=== PATIENT | female | born 1960 | race Caucasian/White ===

== ENCOUNTER → 2021-02-24 11:09 | Outpatient (CLI) | payer OTHER, SELFPAY ==
--- NOTE | 2021-02-24 | DI.MRI.S_ITS ---
PROCEDURE: MR SHOULDER RT WO CON INDICATIONS: Pain in right shoulder TECHNIQUE: Noncontrast oblique coronal T2 fast spin echo with fat saturation, oblique sagittal T1 spin echo and T2 fast spin echo with fat saturation, axial T1 spin echo and T2 fast spin echo with fat saturation through the shoulder. COMPARISON: None. FINDINGS: Image quality: A dedicated shoulder coil could not be used due to patient body habitus. Images are degraded by poor signal to noise ratio. Some diagnostic information is obtained. Rotator cuff: There is supraspinatus tendinosis and a tiny focus of low-grade intrasubstance tearing at the distal insertion. There is moderate infraspinatus tendinosis. The teres minor tendon is intact. There is mild subscapularis tendinosis. The rotator cuff musculature is normal in bulk. Bones and bursae: No acute trabecular bone injury. Chronic traction cystic changes are seen at the posterosuperior humeral head. There is no narrowing of the supraspinatus outlet. No high-grade acromioclavicular osteoarthrosis is seen. A trace amount of subacromial/subdeltoid bursal fluid is present. There is a small amount of glenohumeral fluid. Capsule and soft tissues: The labrum is not well evaluated due to image degradation as described above. However, focal hyperintense signal is seen at the posterosuperior labrum that could represent a subtle nondisplaced tear. No paralabral cyst is seen. No biceps long head tendon tear seen. IMPRESSION: 1. Suspected nondisplaced tear of the posterosuperior labrum. However, image quality is suboptimal secondary to an inability to use a dedicated shoulder coil due to patient's body habitus. Recommend correlation with clinical signs and symptoms. 2. Focal low-grade intrasubstance tearing of the supraspinatus tendon at the distal insertion superimposed on moderate supraspinatus and infraspinatus tendinosis. 3. Mild subscapularis tendinosis. Dictated by: Jhonatan Carrion M.D. on 02/24/2021 at 12:21 Approved by: Jhonatan Carrion M.D. on 02/24/2021 at 12:34
== END ==
PROVIDERS: PCP Internal Medicine; Referring Provider Family Medicine; Visit Provider Family Medicine
DX: M75.111 Incomplete rotator cuff tear or rupture of right shoulder, not specified as traumatic (principal); M25.511 Pain in right shoulder
CPT/HCPCS: 73221

== ENCOUNTER → 2021-07-12 09:45 | Outpatient (CLI) | payer OTHER, SELFPAY ==
[2021-07-12 13:20] LABS: COVID19 -Nasal RAPID Negative (Negative)
== END ==
PROVIDERS: PCP Internal Medicine; Visit Provider Family Medicine Sleep Medicine
DX: Z20.822 Contact with and (suspected) exposure to COVID-19 (principal)
CPT/HCPCS: 87635; C9803

== ENCOUNTER 2021-07-13 10:21 | Day surgery (SDC) | payer OTHER, SELFPAY ==
[2021-07-11 15:00] VITALS: BMI 41.3
[2021-07-13] VITALS (7 sets, daily range): BP systolic 128–164; BP diastolic 79–93; PULSE 88–100; RESP 12–18; TEMP 36.1–36.4; O2SAT 96–99; BMI 41.3
[2021-07-13] MEDS: LACTATED RINGERS 1,000 ML 84 ML IV ×2 (10:30→14:04)
--- NOTE | 2021-07-13 12:56 | P.HP_ITS ---
History of Present Illness History of Present Illness Date Patient Seen: 07/13/21 Time Patient Seen: 12:15 Chief complaint: SDC Narrative: 61-year-old female with right shoulder pain this been unresponsive to conservative management. Patient History Medical History Anesthesia complication Asthma Difficult intravenous access Headache, migraine HTN (hypertension) Hypothyroidism Psoriasis Surgical History History of hysterectomy History of nasal surgery Hx of bilateral oophorectomy Hx of dilation and curettage Hx of shoulder surgery Family & Social History Social History: household members spouse Tobacco & Substance use: Smoking Status Never smoker alcohol intake current alcohol intake frequency holiday/special occasion Substance Use Type does not use Meds Home Medications and Allergies Home Medications Medication Instructions Recorded Confirmed Type amitriptyline 50 mg tablet 50 mg PO BEDTIME 07/11/21 07/13/21 History aspirin 81 mg tablet,delayed 81 mg PO DAILY 07/11/21 07/13/21 History release levothyroxine 88 mcg tablet 88 mcg PO DAILY 07/11/21 07/13/21 History (Synthroid) losartan 100 mg tablet 100 mg PO DAILY 07/11/21 07/11/21 History methocarbamol 500 mg tablet 500 mg PO TID 07/11/21 07/13/21 History trazodone 300 mg tablet 300 mg PO BEDTIME 07/11/21 07/13/21 History Allergies Allergy/AdvReac Type Severity Reaction Status Date / Time adhesive tape Allergy Severe Welts Verified 07/13/21 10:05 celecoxib Allergy Severe Rash, welts Verified 07/13/21 10:05 latex Allergy Severe Rash Verified 07/13/21 10:05 Sulfa (Sulfonamide Allergy Severe Welts Verified 07/13/21 10:05 Antibiotics) Iodine and Iodide Containing Allergy Verified 07/13/21 10:05 Produc shellfish derived Allergy Unknown, Verified 07/13/21 10:05 positive on allergy testing doxycycline AdvReac Severe Headache Verified 07/13/21 10:05 codeine AdvReac I passed Verified 07/13/21 10:05 out Exam Vital Signs (past 8 hours): - 07/13/21 10:59 Temperature 97.6 F Pulse Rate 100 H Respiratory Rate 15 Blood Pressure 148/88 H Pulse Oximetry 99 Oxygen Delivery Method Room Air Narrative Exam Narrative: Decreased active range of motion to the shoulder. Pain with range of motion. Forward flexion and abduction to 120?. External rotation 30? and internal rotation to the small of the back. No sign of any glenohumeral joint instability or crepitus with range of motion. Pain with impingement testing as well as rotator cuff strength testing. Assessment & Plan Assessment & Plan narrative: Patient with right shoulder pain in unresponsive to conservative treatment. Patient has physical exam findings as well as MRI findings of impingement as well as a partial rotator cuff tear as well as some degenerative changes to the labrum. Due to her symptoms, patient is interested in proceeding with surgical treatment. The risk, benefits, alternatives, possible complications, operative course, and postop outcomes were discussed. Complications including but not limiting to bleeding, infection, fracture, nerve injury, continued pain postoperatively or instability postoperatively were discussed in detail. Medical complications including but not limited to deep venous thrombosis event, anesthesia complic ations with excessive bleeding, vascular events or cardiac events and other possible complications were discussed in detail. Need for postoperative rehabilitation and anticipated hospital stay and clinical course were discussed in detail. Patient acknowledges understanding and elects to proceed with surgery. Time Spent With Patient Critical Care time: I spent a total of [] minutes of critical care time on this patient's care today; this time is exclusive of procedural time.
--- NOTE | 2021-07-13 12:58 | PM.PREOP ---
Pre-operative Note Interval Note History & Physical reviewed/Exam performed by Physician: Yes Changes to H&P: No
[2021-07-13] MEDS: CEFAZOLIN 2 GM/20 ML SYRINGE IV (13:16)
--- NOTE | 2021-07-13 13:28 | SUR.PREOP ---
Block start time [1255] . Monitoring initiated and maintained throughout procedure. Oxygen and medications given per anesthesiologist. Patient remained stable throughout procedure, no adverse reactions noted. Block end time [1306].
--- NOTE | 2021-07-13 13:54 | SUR.OPER ---
Beach chair on padded OR bed. Head on gel donut secured with tape over gauze. Non-operative arm secured <90 degrees abduction on padded arm board. Pillow under knees. Safety belt at thigh. Cloth tape over blanket over lower legs.
[2021-07-13] MEDS: BUPIVACAINE 0.5% (PF) 30 ML, EPINEPHrine 0.15 MG INJ (14:00)
--- NOTE | 2021-07-13 14:09 | P.PCN_ITS ---
Procedures Date/Time Date of procedure: 07/13/21 Time of procedure: 13:00 General Procedure description: Ultrasound guided interscalene brachial plexus nerve block for post op pain control after right shoulder arthroscopy by Dr. Denny. Risk and benefits of procedure discussed with patient. ASA monitoring applied to patient. O2 given via nasal cannula. 1 mg Versed and 50 mcg fentanyl given for procedural sedation. Skin site was prepped with chlorhexidine and allowed to fully dry. Sterile gloves, mask, hat and probe cover were used to maintain sterility. 2% lidocaine and 30ga needle was used to make a small skin wheal at needle inser tion site. Under ultrasound guidance, a 21ga 50mm [place] needle was directed into the interscalene groove (middle/anterior scalenes) near the brachial plexus. Patient reported no parasthesias. After negative aspiration, 20 mL 0.5% ropivicaine and 10mg dexamethasone were injected around brachial plexus. Patient tolerated procedure well.
--- NOTE | 2021-07-13 14:42 | P.OP_ITS ---
Operative Date/Time/Diagnoses Date of procedure: 07/13/21 Time of procedure: 13:30 Pre-op diagnosis: Right shoulder impingement with partial rotator cuff tear and degenerative labral tearing Post-op diagnosis: same Procedure & Clinicians Procedure: Right arthroscopic extensive debridement CPT 94680, distal clavicle excision CPT 25455, subacromial decompression 58163 Same procedure as scheduled: Yes Indications: Patient with right shoulder impingement, partial rotator cuff tear, AC joint arthritis that is been unresponsive to conservative treatment. Surgeon: Tc Denny Welding Instructor: Skyla Victor Anesthesia Type: General and Peripheral nerve block Operative Notes Findings: Partial tearing to both the articular and bursal aspects of the rotator cuff. No sign of any high-grade tear or full-thickness tears. Degenerative tearing throughout the labrum. No sign of any extension into the bicipital anchor. No sign of any biceps tendon subluxation or tearing. Some early arthritic changes with thinning to the center portion of the humeral head. No sign of any full- thickness cartilage loss. Some early signs of chondromalacia to the glenoid. No sign of any loose bodies. Subacromial space had quite a bit of synovitis and bursitis in the subacromial space was subdeltoid space. Arthritic changes to the AC joint with inferior osteophytes. Impingement lesion in the acromial arch. Bursal sided rotator cuff tear but no sign of any high-grade tears or full-thickness tears. Closure Type: primary Estimated Blood Loss (mL): 5 Procedure in detail: On date of service, Patient was met in the holding area. The operative site was signed and witnessed by the OR staff. The surgeries once again discussed with the patient and any remaining questions they had were answered fully. Patient was taken back to the operating theater and placed on the operating table in a supine position. Great care was taken to ensure that all bony prominences were properly padded. Patient was then placed into the beach chair position. The head and neck were properly positioned and secured. A timeout was performed verifying patient's name, procedure, and the operative site. The upper extremity was then prepped and draped in the normal sterile fashion. Previously, the bony anatomy and portal sites were marked out as well as injected with Marcaine with epinephrine. An 11 blade was used to make an incision in the posterior aspect of the shoulder. The camera was placed, and a diagnostic shoulder scope was performed. Findings listed above. Next under direct visualization, a anterior portal was made. Shaver was placed into the anterior portal and a extensive debridement of the glenohumeral joint was p erformed. Shaver was used to debride the degenerative changes throughout the labrum as well as a type 1 slap tear. Also used to debride the partial tearing to the articular surface of the rotator cuff. We debrided down to more healthy rotator cuff tissue. Next the camera was placed into the subacromial space. A lateral portal was obtained under direct visualization. A combination of the shaver and vapor wand, a debridement of the inflamed tissue as well as inflamed bursa was performed. The lateral gutter was also cleaned out. This gave us good visualization of the bursal aspect of the rotator cuff as well as the acromial arch. There was an obvious impingement lesion in the acromial arch. Next we turned our attention to the subacromial decompression. Next, a buddy was then used to do a subacromial decompression. This allowed us to convert the acromion to a type I acromial. This also allowed us to shave down the bony lesion in the acromial space. The rasp was placed into the lateral portal as well as the anterior portal in order to do a complete subacromial decompression. We next turned our attention to the distal clavicle. Using the shaver and the vapor wand we were able to clean out all the soft tissue around the distal clavicle as well as into the a.c. joint. This gave us good visualization of the arthritic changes to the distal clavicle as well as good visualization of the inferior osteophytes coming off the distal clavicle. Using the buddy in the anterior portal, we were able to remove the inferior osteophytes as well as do a distal clavicle excision removing 3-4 mm of bone. The camera was then placed into the anterior portal which gave us a direct visualization of the a.c. joint allowing us to assess the distal clavicle excision. We then turned our attention to the rotator cuff tear. Shaver was used to debride once again any fraying or partial tearing to the superior portion of the rotator cuff. Also used to remove any remaining synovitis and inflamed bursal tissue. The shoulder was then taken through range of motion and there was no sign of any additional impingement. Next, the suprascapular nerve was blocked. Patient's shoulder was then cleaned dried and dressed and patient was taken to the PACU in stable condition. Complications: none Post-operative Condition: stable Disposition: PACU Plan for aftercare: The sling will just be for comfort. No restrictions to range of motion. Patient will follow our subacromial decompression postoperative protocol.
== END 2021-07-13 15:50 | disposition home or self-care (01) ==
PROVIDERS: PCP Internal Medicine; Referring Provider Orthopaedic Surgery; Visit Provider Orthopaedic Surgery
PROC: (CPT 29827; principal; 2021-07-13 12:30)
DX: M75.41 Impingement syndrome of right shoulder (principal); M75.111 Incomplete rotator cuff tear or rupture of right shoulder, not specified as traumatic; M19.011 Primary osteoarthritis, right shoulder; M25.711 Osteophyte, right shoulder; S43.431A Superior glenoid labrum lesion of right shoulder, initial encounter; E66.9 Obesity, unspecified; I10 Essential (primary) hypertension; E78.5 Hyperlipidemia, unspecified; E03.9 Hypothyroidism, unspecified; J45.909 Unspecified asthma, uncomplicated; G43.909 Migraine, unspecified, not intractable, without status migrainosus
CPT/HCPCS: 29823; 29826; 29824; 64450; J0171; J0690; J1100; J2250; J2405; J2704; J3010

== ENCOUNTER → 2025-01-27 12:51 | Outpatient (CLI) | payer MEDICARE, OTHER, SELFPAY ==
--- NOTE | 2025-01-27 12:55 | DI.RAD.S_ITS ---
PROCEDURE: XR KNEE LT 3V INDICATIONS: Contusion of left knee, initial encounter TECHNIQUE: 3 views of the knee were acquired. COMPARISON: None. FINDINGS: Mild degenerative changes of the left knee medial compartment with mild joint space narrowing, [address] grade 1-2. Lateral and patellofemoral compartments within normal limits. No radiographic evidence of fracture, dislocation or high attenuation foreign body. IMPRESSION: Mild degenerative changes medial compartment. If symptoms persist or worsen, or there is high clinical suspicion of knee abnormality, MRI could be performed. Dictated by: Mike Barfield M.D. on 01/28/2025 at 10:44 Approved by: Mike Barfield M.D. on 01/28/2025 at 10:47
--- NOTE | 2025-01-27 12:55 | DI.RAD.S_ITS ---
PROCEDURE: XR HIP W PEL IF DONE RT 2V INDICATIONS: PAIN TECHNIQUE: 2 views of the hip were acquired. COMPARISON: None. FINDINGS: Moderate degenerative changes bilateral hips with joint space narrowing and osteophytes [address] grade 3. Degenerative changes lower lumbar spine. No radiographic evidence of fracture dislocation or high attenuation foreign body IMPRESSION: Degenerative changes. If symptoms persist or worsen, or there is high clinical suspicion of pelvic/hip abnormality, MRI could be performed. Dictated by: Mike Barfield M.D. on 01/28/2025 at 9:46 Approved by: Mike Barfield M.D. on 01/28/2025 at 9:47
== END ==
LOC: RAD 12:54
PROVIDERS: PCP Internal Medicine
DX: S80.02XA Contusion of left knee, initial encounter (principal); M25.551 Pain in right hip
CPT/HCPCS: 73502; 73562